=== PATIENT | male | born 1985 | race Caucasian/White ===

== ENCOUNTER 2022-12-25 00:54 | Emergency (ER) | payer SELFPAY ==
[~2022-12-25] VITALS: Ht 175.3 cm; Wt 82.0 kg
[2022-12-25 00:56] VITALS: BP 120/86
[2022-12-25 02:24] LABS: HEMOGLOBIN. 15.6 g/dL (14.0-18.0); MEAN CORPUSCULAR HEMOGLOBIN 28.4 pg (28.0-32.0); MEAN PLATELET VOLUME 7.9 fl (7.4-10.4)
[2022-12-25 02:27] LABS: CLARITY URINE CLEAR (CLEAR); COLOR URINE DARK YELLOW (YELLOW); KETONES URINE TRACE (NEGATIVE); LEUKOCYTE ESTERASE URINE NEGATIVE (NEGATIVE); NITRITE URINE NEGATIVE (NEGATIVE); OCCULT BLOOD URINE NEGATIVE (NEGATIVE); PROTEIN URINE NEGATIVE (NEGATIVE); SPECIFIC GRAVITY URINE 1.024 (1.005-1.030)
[2022-12-25 02:31] LABS: BASOPHILS % 0.7 % (0.0-2.0); EOSINOPHILS % 1.7 % (0.0-5.0); HEMATOCRIT. 45.6 % (42.0-52.0); LYMPHOCYTES % 29.4 % (20.0-50.0); MEAN CORPUSCULAR VOLUME 82.9 fL (80.0-94.0); MONOCYTES % 9.2 % (2.0-8.0); PLATELET 285 x1000/uL (130-400); RED BLOOD CELL COUNT 5.49 mill/uL (4.7-6.1); RED CELL DISTRIBUTION WIDTH 13.8 % (11.6-14.6)
[2022-12-25 02:47] LABS: *AMPHETAMINES SCREEN URINE PRESUMTIVE POSITIVE (NEGATIVE); *BARBITURATES SCREEN URINE NEGATIVE (NEGATIVE); *BENZODIAZEPINES SCREEN URINE NEGATIVE (NEGATIVE); *COCAINE SCREEN URINE NEGATIVE (NEGATIVE); CANNABINOID URINE SCREEN PRESUMTIVE POSITIVE (NEGATIVE); METHADONE URINE SCREEN NEGATIVE (NEGATIVE); OPIATES URINE SCREEN NEGATIVE (NEGATIVE); PHENCYCLIDINE URINE SCREEN NEGATIVE (NEGATIVE)
[2022-12-25 02:56] LABS: CHLORIDE 104 mEq/L (98-107)
[2022-12-25 03:02] LABS: ETHANOL BLOOD < 10 mg/dL
== END 2022-12-25 04:25 | disposition home or self-care (01) ==
LOC: ER 00:54
DX: F12.151 Cannabis abuse with psychotic disorder with hallucinations (principal); F15.151 Other stimulant abuse with stimulant-induced psychotic disorder with hallucinations; F16.151 Hallucinogen abuse with hallucinogen-induced psychotic disorder with hallucinations; F12.180 Cannabis abuse with cannabis-induced anxiety disorder; R07.2 Precordial pain; F16.180 Hallucinogen abuse with hallucinogen-induced anxiety disorder; F15.180 Other stimulant abuse with stimulant-induced anxiety disorder; R03.0 Elevated blood-pressure reading, without diagnosis of hypertension
CPT/HCPCS: 36415; 80048; 80305; 80307; 80320; 80329; 81003; 84484; 85025; 93005; 99284; G0480

== ENCOUNTER 2023-01-12 05:46 | Emergency (ER) | payer MEDICAID, OTHER ==
[~2023-01-12] VITALS: Ht 182.9 cm; Wt 100.0 kg
[2023-01-12 05:55] VITALS: BP 145/89
[2023-01-12] MEDS ORDERED: LORAZEPAM 0.5MG TABLET PO ONE (08:15)
[2023-01-12] MEDS ORDERED: ASPIRIN 81MG TABLET PO ONE (08:15)
[2023-01-12 08:45] LABS: BASOPHILS % 0.6 % (0.0-2.0); EOSINOPHILS % 1.4 % (0.0-5.0); HEMATOCRIT. 41.7 % (42.0-52.0); HEMOGLOBIN. 14.3 g/dL (14.0-18.0); LYMPHOCYTES % 31.3 % (20.0-50.0); MEAN CORPUSCULAR HEMOGLOBIN 28.4 pg (28.0-32.0); MEAN CORPUSCULAR VOLUME 82.9 fL (80.0-94.0); MEAN PLATELET VOLUME 7.6 fl (7.4-10.4); NEUTROPHILS % 58.7 % (40.0-76.0); PLATELET 275 x1000/uL (130-400); RED BLOOD CELL COUNT 5.04 mill/uL (4.7-6.1); RED CELL DISTRIBUTION WIDTH 13.4 % (11.6-14.6)
[2023-01-12 08:49] LABS: CHLORIDE 105 mEq/L (98-107)
[2023-01-12 10:47] LABS: ETHANOL BLOOD < 10 mg/dL
== END 2023-01-12 11:10 | disposition home or self-care (01) ==
LOC: ER 05:46
DX: T43.651A Poisoning by methamphetamines accidental (unintentional), initial encounter (principal); F15.151 Other stimulant abuse with stimulant-induced psychotic disorder with hallucinations; R07.89 Other chest pain; T40.711A Poisoning by cannabis, accidental (unintentional), initial encounter; F15.180 Other stimulant abuse with stimulant-induced anxiety disorder; F12.180 Cannabis abuse with cannabis-induced anxiety disorder; F12.151 Cannabis abuse with psychotic disorder with hallucinations; Y92.89 Other specified places as the place of occurrence of the external cause
CPT/HCPCS: 36415; 71045; 80053; 80307; 80320; 80329; 84484; 85025; 93005; 99285; Z7610; G0480

== ENCOUNTER 2023-02-11 00:07 | Emergency (ER) | payer OTHER ==
[~2023-02-11] VITALS: Ht 177.8 cm; Wt 73.0 kg
[2023-02-11 00:10] VITALS: BP 137/94
[2023-02-11 01:56] LABS: CLARITY URINE CLEAR (CLEAR); COLOR URINE DARK YELLOW (YELLOW); KETONES URINE TRACE (NEGATIVE); LEUKOCYTE ESTERASE URINE NEGATIVE (NEGATIVE); NITRITE URINE NEGATIVE (NEGATIVE); OCCULT BLOOD URINE NEGATIVE (NEGATIVE); PH URINE 5.5 (4.5-8.0); PROTEIN URINE NEGATIVE (NEGATIVE); SPECIFIC GRAVITY URINE 1.028 (1.005-1.030); UROBILINOGEN URINE 0.2 E.U./dL (0.2-1.0)
[2023-02-11 02:21] LABS: *AMPHETAMINES SCREEN URINE PRESUMTIVE POSITIVE (NEGATIVE); *BARBITURATES SCREEN URINE NEGATIVE (NEGATIVE); *BENZODIAZEPINES SCREEN URINE NEGATIVE (NEGATIVE); *COCAINE SCREEN URINE NEGATIVE (NEGATIVE); CANNABINOID URINE SCREEN PRESUMTIVE POSITIVE (NEGATIVE); METHADONE URINE SCREEN NEGATIVE (NEGATIVE); OPIATES URINE SCREEN NEGATIVE (NEGATIVE); PHENCYCLIDINE URINE SCREEN NEGATIVE (NEGATIVE)
[2023-02-11 04:57] LABS: BASOPHILS % 0.7 % (0.0-2.0); EOSINOPHILS % 1.1 % (0.0-5.0); HEMATOCRIT. 43.8 % (42.0-52.0); HEMOGLOBIN. 14.9 g/dL (14.0-18.0); LYMPHOCYTES % 38.5 % (20.0-50.0); MEAN CORPUSCULAR HEMOGLOBIN 28.2 pg (28.0-32.0); MEAN CORPUSCULAR VOLUME 83.1 fL (80.0-94.0); MEAN PLATELET VOLUME 7.7 fl (7.4-10.4); MONOCYTES % 9.9 % (2.0-8.0); NEUTROPHILS % 49.8 % (40.0-76.0); PLATELET 271 x1000/uL (130-400); RED BLOOD CELL COUNT 5.27 mill/uL (4.7-6.1); RED CELL DISTRIBUTION WIDTH 12.9 % (11.6-14.6)
[2023-02-11 05:07] LABS: CHLORIDE 105 mEq/L (98-107)
[2023-02-11] MEDS ORDERED: LORAZEPAM 2MG/ML CPJ IM ONE (05:15)
[2023-02-11] MEDS ORDERED: OLANZAPINE 10 MG/VIAL IM ONE (05:15)
[2023-02-11 05:17] LABS: ETHANOL BLOOD < 10 mg/dL
== END 2023-02-11 10:05 | disposition home or self-care (01) ==
LOC: ER 00:29
DX: F19.10 Other psychoactive substance abuse, uncomplicated (principal); J45.909 Unspecified asthma, uncomplicated; F12.10 Cannabis abuse, uncomplicated; F15.10 Other stimulant abuse, uncomplicated; Z88.0 Allergy status to penicillin; Z86.59 Personal history of other mental and behavioral disorders; Z20.822 Contact with and (suspected) exposure to COVID-19
CPT/HCPCS: 36415; 80053; 80305; 80307; 80320; 80329; 81003; 82962; 85025; 87426; 99283; C9803; Z7610; J2060; J3490; G0480